=== PATIENT | female | born 1990 | race Caucasian/White ===

== ENCOUNTER 2022-07-04 12:34 | Emergency (ER) | payer OTHER ==
[~2022-07-04] VITALS: Ht 157.5 cm; Wt 53.1 kg
--- NOTE | 2022-07-04 13:07 | NUR ---
PT IS IN ROOM #2A. DR COVARRUBIAS EVALUATED THE PT.
[2022-07-04 13:09] LABS: HEMATOCRIT 38.1 % (31.2-41.9); MEAN CORPUSCULAR HEMOGLOBIN 29.3 uug (24.7-32.8); MEAN CORPUSCULAR VOLUME 88.9 fL (75.5-95.3); PLATELET COUNT (AUTO) 379 K/uL (179-408)
[2022-07-04 13:27] LABS: CREATININE 0.7 mg/dL (0.6-1.3); POTASSIUM 3.8 mmol/L (3.5-5.1)
[2022-07-04 13:30] LABS: *BILIRUBIN,URIN NEGATIVE (NEGATIVE); *CLARITY,URINE CLEAR (CLEAR); *COLOR,URINE YELLOW (YELLOW); *KETONES,URINE TRACE (NEGATIVE); *UROBILINOGEN,URINE 0.2 E.U./dl (NORMAL); LEUKOCYTE ESTERASE ,URINE NEGATIVE (NEGATIVE); NITRITE, URINE NEGATIVE (NEGATIVE); PH,URINE 5.5 (5.0-8.0); UGLUCOSE NEGATIVE (NEGATIVE)
[2022-07-04 13:31] LABS: *BLOOD, URINE TRACE (NEGATIVE)
--- NOTE | 2022-07-04 14:35 | NUR ---
PT DECIDED TO LEAVE [facility] ER AMA. DR COVARRUBIAS EXPLAINED ALL RISKS OF LEAVING [facility] ER AMA TO THE PT. PT VERBALIZED FULL UNDERSTANDING OF 's EXPLANATIONS. PT SIGNED AMA FORM AND LEFT HOSPITAL ER WITH HER BY CAR.
[2022-07-04 14:40] VITALS: BP 128/75
[2022-07-04 17:10] LABS: BACTERIA,URINE RARE /HPF (NONE SEEN); SQUAMOUS EPITHELIAL CELL,UR FEW /HPF (NONE SEEN); URINE AMORPHOUS URATE MODERATE /HPF; WBC,URINE 0-3 /HPF (0-3)
== END 2022-07-04 14:42 | disposition left against medical advice (07) ==
LOC: ER 12:34
DX: O00.90 Unspecified ectopic pregnancy without intrauterine pregnancy (principal); O34.81 Maternal care for other abnormalities of pelvic organs, first trimester; N83.201 Unspecified ovarian cyst, right side; Z3A.00 Weeks of gestation of pregnancy not specified
CPT/HCPCS: 36415; 76856; 85025; 86850; 86900; 86901; A4663